=== PATIENT | female | born 1970 | race American Indian/Alaskan Native ===

== ENCOUNTER 2018-12-03 17:45 | Emergency (ER) | payer SELFPAY ==
--- NOTE | 2018-12-03 18:46 | Emergency Department Report ---
Blank Doc - Documentation Documentation: 48 y old female presents with n/v/d with abd pain, radiating to thighs also cc of vag d/c no odo. ua,upt acc eval
[2018-12-03 19:16] LABS: Basophils # (Auto) 0.1 K/mm3 (0.0-0.1); Basophils % (Auto) 1.3 % (0.0-1.8); Eosinophils # (Auto) 0.1 K/mm3 (0.0-0.4); Eosinophils % (Auto) 1.3 % (0.0-4.3); Hematocrit 39.6 % (30.3-42.9); Hemoglobin 13.5 gm/dl (10.1-14.3); Lymphocytes % (Auto) 32.5 % (13.4-35.0); Mean Corpuscular HGB Conc 34 % (30-34); Mean Corpuscular Volume 92 fl (79-97); Monocytes # (Auto) 0.4 K/mm3 (0.0-0.8); Monocytes % (Auto) 5.7 % (0.0-7.3); Platelet Count 283 K/mm3 (140-440); Red Cell Distribution Width 14.6 % (13.2-15.2)
[2018-12-03 19:31] LABS: BUN/Creatinine Ratio 13; Blood Urea Nitrogen 10 mg/dL (7-17); Calcium 8.9 mg/dL (8.4-10.2); Hemolysis Index 10
[2018-12-03 20:09] LABS: Bilirubin,Urine NEG (Negative); Blood,Urine SM (Negative); Color,Urine Yellow (Yellow); Mucus,Urine FEW /HPF; Protein,Urine <15 mg/dL mg/dL (Negative); Urobilinogen,Urine < 2.0 mg/dL (<2.0)
[2018-12-03 21:07] VITALS: BP 176/96
[2018-12-03] MEDS ORDERED: ZOFRAN IV ONE (22:11)
[2018-12-03] MEDS ORDERED: TORADOL IV ONE (22:11)
[2018-12-03] MEDS ORDERED: ULTRAM PO ONE (22:30)
[2018-12-03] MEDS ORDERED: ZOFRAN ODT PO ONE (22:30)
[2018-12-03] MEDS ORDERED: TYLENOL ONE (22:59)
--- NOTE | 2018-12-03 23:31 | Cat Scan Report ---
EXAM: CT ABDOMEN PELVIS WO CON HISTORY: abd pain TECHNIQUE: Spiral axial CT images are obtained through the abdomen and pelvis without the administrat ion of intravenous contrast. Additional coronal and sagittal reformatted images are reconstructed. DOSIMETRY: Total DLP 1127.45 mGycm; CTDI 20.25 mGy COMPARISON: None available. FINDINGS: GASTROINTESTINAL TRACT: Status post LAP-BAND procedure. There is mild circumferential thickening of t he distal esophagus (7.8 mm) which may represent esophagitis. No evidence for slippage. Diffuse colon ic diverticulosis, especially severe in the sigmoid region, without CT evidence for acute diverticuli tis. No evidence for bowel herniation, bowel obstruction, or colitis. A normal-appearing appendix is seen. GENITOURINARY SYSTEM: There is an approximately 2.4 cm right renal cyst. The kidneys are otherwise un remarkable. There is no ureteral calculus or stigmata of obstructive uropathy. The urinary bladder i s grossly unremarkable for a non-dedicated exam. CT ABDOMEN: The liver, spleen, pancreas, adrenal glands, gallbladder, aorta, and inferior vena cava a re within normal limits for a noncontrast CT scan. There is no intra-abdominal or retroperitoneal ly mphadenopathy, free fluid, or free air seen. No abdominal herniation is noted. CT PELVIS: The uterus and adnexa are within normal limits for a noncontrast CT scan. Trace amount of free fluid within the dependent pelvis/cul-de-sac; DDX includes (but is not limited to) physiologic c hange and/or sequela of occult ovarian cyst leakage or rupture in the appropriate clinical setting. C linical correlation is advised. The visualized bony structures are within normal limits. No pelvic sidewall or inguinal lymphadenopathy is seen. No inguinal herniation is noted. No free air is seen. LUNG BASES: The lung bases are clear. IMPRESSION: 1. Mild circumferential thickening of the distal esophagus (7.8 mm) which may represent esophagitis 2. No evidence for renal stone disease or obstructive uropathy. 3. Diffuse colonic diverticulosis, especially severe in the sigmoid region, without CT evidence for acute diverticulitis. 4. No evidence for acute appendicitis, bowel obstruction or colitis seen. 5. No free air, mass lesions, or lymphadenopathy seen. 6. Trace amount of free fluid within the dependent pelvis/cul-de-sac; DDX includes (but is not limit ed to) physiologic change and/or sequela of occult ovarian cyst leakage or rupture in the appropriate clinical setting. Clinical correlation is advised. This document is electronically signed by Edu Smith MD., Dec 03 2018 11:29:49 PM ET
[2018-12-03] MEDS ORDERED: NORCO 5/325 ONE (23:55)
[2018-12-03] MEDS ORDERED: NORCO 5/325 PO ONE (23:55)
--- NOTE | 2018-12-04 00:04 | Emergency Department Report ---
ED Abdominal Pain HPI - General Chief Complaint: Abdominal Pain Stated Complaint: LOWER ABD PAIN/BACK PAIN Time Seen by Provider: 12/03/18 18:42 Source: patient Mode of arrival: Ambulatory Limitations: No Limitations - History of Present Illness Severity scale (0 -10): 8 - Related Data Previous Rx's Medication Instructions Recorded Last Taken Type Acetaminophen/Codeine [Tylenol 1 tab PO Q6H PRN #12 tab 12/04/18 Unknown Rx /Codeine # 3 tab] Dicyclomine [Bentyl] 10 mg PO QID PRN #40 capsule 12/04/18 Unknown Rx Famotidine [Pepcid] 20 mg PO BID #60 tablet 12/04/18 Unknown Rx Allergies Allergy/AdvReac Type Severity Reaction Status Date / Time cephalexin [From Keflex] Allergy Unknown Verified 12/03/18 17:47 ED Review of Systems ROS: Stated complaint: LOWER ABD PAIN/BACK PAIN Other details as noted in HPI ED Past Medical Hx - Past Medical History Previous Medical History?: No - Surgical History Past Surgical History?: No - Social History Smoking Status: Current Every Day Smoker Substance Use Type: Alcohol - Medications Home Medications: Home Medications Medication Instructions Recorded Confirmed Last Taken Type Acetaminophen/Codeine [Tylenol 1 tab PO Q6H PRN #12 tab 12/04/18 Unknown Rx /Codeine # 3 tab] Dicyclomine [Bentyl] 10 mg PO QID PRN #40 capsule 12/04/18 Unknown Rx Famotidine [Pepcid] 20 mg PO BID #60 tablet 12/04/18 Unknown Rx ED Physical Exam - General Limitations: No Limitations ED Course Vital Signs 12/03/18 12/03/18 12/03/18 18:16 18:48 21:07 Temperature 98.4 F 98.4 F Pulse Rate 67 67 63 Respiratory 18 20 17 Rate Blood Pressure 176/95 Blood Pressure 176/95 176/96 [Right] O2 Sat by Pulse 100 100 98 Oximetry ED Medical Decision Making - Lab Data Result diagrams: 12/03/18 18:53 12/03/18 18:53 - Radiology Data Radiology results: report reviewed, image reviewed Ordering Physician: LIDIA SILVA NP Date of Service: 12/03/18 Procedure(s): CT abdomen pelvis wo con Accession Number(s): [id number] cc: LIDIA T. RELEFORD, ADMINISTRATION VICE PRESIDENT EXAM: CT ABDOMEN PELVIS WO CON HISTORY: abd pain TECHNIQUE: Spiral axial CT images are obtained through the abdomen and pelvis without the administration of intravenous contrast. Additional coronal and sagittal reformatted images are reconstructed. DOSIMETRY: Total DLP 1127.45 mGycm; CTDI 20.25 mGy COMPARISON: None available. FINDINGS: GASTROINTESTINAL TRACT: Status post LAP-BAND procedure. There is mild circumferential thickening of the distal esophagus (7.8 mm) which may represent esophagitis. No evidence for slippage. Diffuse colonic diverticulosis, especially severe in the sigmoid region, without CT evidence for acute diverticulitis. No evidence for bowel herniation, bowel obstruction, or colitis. A normal-appearing appendix is seen. GENITOURINARY SYSTEM: There is an approximately 2.4 cm right renal cyst. The kidneys are otherwise unremarkable. There is no ureteral calculus or stigmata of obstructive uropathy. The urinary blad brianna is grossly unremarkable for a non-dedicated exam. CT ABDOMEN: The liver, spleen, pancreas, adrenal glands, gallbladder, aorta, and inferior vena cava are within normal limits for a noncontrast CT scan. There is no intra-abdominal or retroperitoneal lymphadenopathy, free fluid, or free air seen. No abdominal herniation is noted. CT PELVIS: The uterus and adnexa are within normal limits for a noncontrast CT scan. Trace amount of free fluid within the dependent pelvis/cul-de-sac; DDX includes (but is not limited to) physiologic change and/or sequela of occult ovarian cyst leakage or rupture in the appropriate clinical setting. Clinical correlation is advised. The visualized bony structures are within normal limits. No pelvic sidewall or inguinal lymphadenopathy is seen. No inguinal herniation is noted. No free air is seen. LUNG BASES: The lung bases are clear. IMPRESSION: 1. Mild circumferential thickening of the distal esophagus (7.8 mm) which may represent esophagitis 2. No evidence for renal stone disease or obstructive uropathy. 3. Diffuse colonic diverticulosis, especially severe in the sigmoid region, without CT evidence for acute diverticulitis. 4. No evidence for acute appendicitis, bowel obstruction or colitis seen. 5. No free air, mass lesions, or lymphadenopathy seen. 6. Trace amount of free fluid within the dependent pelvis/cul-de-sac; DDX includes (but is not limited to) physiologic change and/or sequela of occult ovarian cyst leakage or rupture in the appropriate clinical setting. Clinical correlation is advised. This document is electronically signed by Jemal Morales MD., Dec 03 2018 11:29:49 PM ET Transcribed By: ASM Dictated By: JEMAL MORALES Electronically Authenticated By: JEMAL MORALES Signed Date/Time: 12/03/182330 DD/ 41 TD/TT: 12/03/182241 - Medical Decision Making ct abd pelvis: ovarian cyst, diverticulosis no evidence of diverticulitis , plan: Tylenol #3, Bentyl, Pepcid, follow up with GI follow up with [facility] in 2-3 days , there is no fever no n/v no dysuria or hematuria pt is hx of gastric banding advised to follow up with GI as directed for chronic esophagitis, pt verbalized agreement and understanding of discharge plan. Critical care attestation.: If time is entered above; I have spent that time in minutes in the direct care of this critically ill patient, excluding procedure time. ED Disposition Clinical Impression: Diverticulosis, Renal cyst, left Ovarian cyst Qualifiers: Laterality: right Qualified Code(s): N83.201 - Unspecified ovarian cyst, right side Disposition: - TO HOME OR SELFCARE Is pt being admited?: No Does the pt Need Aspirin: No Condition: Stable Instructions: Abdominal Pain (ED), Flank Pain (ED), Ovarian Cyst (ED) Prescriptions: Dicyclomine [Bentyl] 10 mg PO QID PRN #40 capsule PRN Reason: abdominal pain Famotidine [Pepcid] 20 mg PO BID #60 tablet Acetaminophen/Codeine [Tylenol /Codeine # 3 tab] 1 tab PO Q6H PRN #12 tab PRN Reason: pain Referrals: LUISA BROWN MD [Staff Physician] - 3-5 Days KOLTON NEWSOME MD [Staff Physician] - 3-5 Days [facility] [Provider Group] - 3-5 Days Forms: Work/School Release Form(ED) Time of Disposition: 00:08
--- NOTE | 2018-12-04 00:14 | Emergency Department Report ---
ED Abdominal Pain HPI - General Chief Complaint: Abdominal Pain Stated Complaint: LOWER ABD PAIN/BACK PAIN Time Seen by Provider: 12/03/18 18:42 Source: patient Mode of arrival: Ambulatory Limitations: No Limitations - History of Present Illness Initial Comments: pt is s 47 y/o aaf with hx of gastric lap band surgery who presents for left flank pain 10/21 no hematuria no fever no chills no n/v no dysuria symptoms are no nothing subset exacerbated by mouth patient has not seen her GI doctor MD Complaint: abdominal pain Onset/Timin -: week(s) Location: L flank Radiation: L flank Migration to: suprapubic Severity: moderate Severity scale (0 -10): 8 Quality: aching Consistency: intermittent Improves With: nothing Worsens With: nothing Associated Symptoms: denies other symptoms - Related Data Previous Rx's Medication Instructions Recorded Last Taken Type Acetaminophen/Codeine [Tylenol 1 tab PO Q6H PRN #12 tab 12/04/18 Unknown Rx /Codeine # 3 tab] Dicyclomine [Bentyl] 10 mg PO QID PRN #40 capsule 12/04/18 Unknown Rx Famotidine [Pepcid] 20 mg PO BID #60 tablet 12/04/18 Unknown Rx Allergies Allergy/AdvReac Type Severity Reaction Status Date / Time cephalexin [From Keflex] Allergy Unknown Verified 12/03/18 17:47 ED Review of Systems ROS: Stated complaint: LOWER ABD PAIN/BACK PAIN Other details as noted in HPI Constitutional: denies: chills, fever Eyes: denies: eye pain, eye discharge, vision change ENT: denies: ear pain, throat pain Respiratory: denies: cough, shortness of breath, wheezing Cardiovascular: denies: chest pain, palpitations Endocrine: no symptoms reported Gastrointestinal: denies: abdominal pain, nausea, vomiting, diarrhea Genitourinary: denies: urgency, dysuria, frequency, hematuria, discharge Musculoskeletal: back pain Skin: denies: rash, lesions Neurological: denies: headache, weakness, paresthesias Psychiatric: denies: anxiety, depression Hematological/Lymphatic: denies: easy bleeding, easy bruising ED Past Medical Hx - Past Medical History Previous Medical History?: No - Surgical History Past Surgical History?: No - Social History Smoking Status: Current Every Day Smoker Substance Use Type: Alcohol - Medications Home Medications: Home Medications Medication Instructions Recorded Confirmed Last Taken Type Acetaminophen/Codeine [Tylenol 1 tab PO Q6H PRN #12 tab 12/04/18 Unknown Rx /Codeine # 3 tab] Dicyclomine [Bentyl] 10 mg PO QID PRN #40 capsule 12/04/18 Unknown Rx Famotidine [Pepcid] 20 mg PO BID #60 tablet 12/04/18 Unknown Rx ED Physical Exam - General Limitations: No Limitations General appearance: alert, in no apparent distress - Head Head exam: Present: atraumatic, normocephalic - Eye Eye exam: Present: normal appearance - ENT ENT exam: Present: mucous membranes moist - Neck Neck exam: Present: normal inspection - Respiratory Respiratory exam: Present: normal lung sounds bilaterally. Absent: respiratory distress, wheezes, stridor, chest wall tenderness - Cardiovascular Cardiovascular Exam: Present: regular rate, normal rhythm, normal heart sounds. Absent: systolic murmur, diastolic murmur, rubs, gallop - GI/Abdominal GI/Abdominal exam: Present: soft, normal bowel sounds - Rectal Rectal exam: Present: deferred - Extremities Exam Extremities exam: Present: normal inspection - Back Exam Back exam: Present: normal inspection, full ROM. Absent: tenderness, CVA tenderness (R), CVA tenderness (L), muscle spasm, paraspinal tenderness, rash noted - Neurological Exam Neurological exam: Present: alert, oriented X3, CN II-XII intact, normal gait - Psychiatric Psychiatric exam: Present: normal affect, normal mood - Skin Skin exam: Present: warm, dry, intact, normal color. Absent: rash ED Course Vital Signs 12/03/18 12/03/18 12/03/18 18:16 18:48 21:07 Temperature 98.4 F 98.4 F Pulse Rate 67 67 63 Respiratory 18 20 17 Rate Blood Pressure 176/95 Blood Pressure 176/95 176/96 [Right] O2 Sat by Pulse 100 100 98 Oximetry ED Medical Decision Making - Lab Data Result diagrams: 12/03/18 18:53 12/03/18 18:53 - Radiology Data Radiology results: report reviewed, image reviewed Ordering Physician: LIDIA SILVA NP Date of Service: 12/03/18 Procedure(s): CT abdomen pelvis wo con Accession Number(s): [id number] cc: LIDIA SILVA NP EXAM: CT ABDOMEN PELVIS WO CON HISTORY: abd pain TECHNIQUE: Spiral axial CT images are obtained through the abdomen and pelvis without the administration of intravenous contrast. Additional coronal and sagittal reformatted images are reconstructed. DOSIMETRY: Total DLP 1127.45 mGycm; CTDI 20.25 mGy COMPARISON: None available. FINDINGS: GASTROINTESTINAL TRACT: Status post LAP-BAND procedure. There is mild circumferential thickening of the distal esophagus (7.8 mm) which may represent esophagitis. No evidence for slippage. Diffuse colonic diverticulosis, especially severe in the sigmoid region, without CT evidence for acute diverticulitis. No evidence for bowel herniation, bowel obstruction, or colitis. A normal-appearing appendix is seen. GENITOURINARY SYSTEM: There is an approximately 2.4 cm right renal cyst. The kidneys are otherwise unremarkable. There is no ureteral calculus or stigmata of obstructive uropathy. The urinary blad brianna is grossly unremarkable for a non-dedicated exam. CT ABDOMEN: The liver, spleen, pancreas, adrenal glands, gallbladder, aorta, and inferior vena cava are within normal limits for a noncontrast CT scan. There is no intra-abdominal or retroperitoneal lymphadenopathy, free fluid, or free air seen. No abdominal herniation is noted. CT PELVIS: The uterus and adnexa are within normal limits for a noncontrast CT scan. Trace amount of free fluid within the dependent pelvis/cul-de-sac; DDX includes (but is not limited to) physiologic change and/or sequela of occult ovarian cyst leakage or rupture in the appropriate clinical setting. Clinical correlation is advised. The visualized bony structures are within normal limits. No pelvic sidewall or inguinal lymphadenopathy is seen. No inguinal herniation is noted. No free air is seen. LUNG BASES: The lung bases are clear. IMPRESSION: 1. Mild circumferential thickening of the distal esophagus (7.8 mm) which may represent esophagitis 2. No evidence for renal stone disease or obstructive uropathy. 3. Diffuse colonic diverticulosis, especially severe in the sigmoid region, without CT evidence for acute diverticulitis. 4. No evidence for acute appendicitis, bowel obstruction or colitis seen. 5. No free air, mass lesions, or lymphadenopathy seen. 6. Trace amount of free fluid within the dependent pelvis/cul-de-sac; DDX includes (but is not limited to) physiologic change and/or sequela of occult ovarian cyst leakage or rupture in the appropriate clinical setting. Clinical correlation is advised. This document is electronically signed by Jemal Morales MD., Dec 03 2018 11:29:49 PM ET Transcribed By: ASM Dictated By: JEMAL MORALES Electronically Authenticated By: JEMAL MORALES Signed Date/Time: 12/03/182330 DD/ 41 TD/TT: 12/03/182241 Critical care attestation.: If time is entered above; I have spent that time in minutes in the direct care of this critically ill patient, excluding procedure time. ED Disposition Disposition: DC-01 TO HOME OR SELFCARE Condition: Stable Instructions: Ovarian Cyst (ED), Abdominal Pain (ED), Flank Pain (ED) Prescriptions: Dicyclomine [Bentyl] 10 mg PO QID PRN #40 capsule PRN Reason: abdominal pain Famotidine [Pepcid] 20 mg PO BID #60 tablet Acetaminophen/Codeine [Tylenol /Codeine # 3 tab] 1 tab PO Q6H PRN #12 tab PRN Reason: pain Referrals: [facility] [Provider Group] - 3-5 Days LUISA BROWN MD [Staff Physician] - 3-5 Days KOLTON NEWSOME MD [Staff Physician] - 3-5 Days Forms: Work/School Release Form(ED)
== END 2018-12-04 00:10 | disposition home or self-care (01) ==
LOC: ED 17:45
DX: K57.90 Diverticulosis of intestine, part unspecified, without perforation or abscess without bleeding (principal); N28.1 Cyst of kidney, acquired; F17.200 Nicotine dependence, unspecified, uncomplicated
CPT/HCPCS: 36415; 74176; 80048; 81001; 84703; 85025; Q0162